=== PATIENT | male | born 1965 | race Caucasian/White ===

== ENCOUNTER 2017-11-24 08:19 | Outpatient (CLI) | payer OTHER ==
[~2017-11-24 08:19] MED LIST: ALBUTEROL SULFAT4 MG; ATENOLOL100 MG; BENADRYL50 MG; METFORMIN HCL500 M1; ORPH100T PO; RESTORIL30 MG; SYNTHROID75 MCG; TENORMIN100 MG; ULTRAM50 MG PO; VISTARIL50 MG; XANAX2 MG; ZOCOR20 MG; [UNRECOGNIZED DRUG - OTHER]
== END 2017-11-24 09:14 | disposition home or self-care (01) ==
LOC: LAB 08:19
DX: N40.1 Benign prostatic hyperplasia with lower urinary tract symptoms (principal); Z12.11 Encounter for screening for malignant neoplasm of colon; R78.9 Finding of unspecified substance, not normally found in blood; E78.2 Mixed hyperlipidemia; R74.0 Nonspecific elevation of levels of transaminase and lactic acid dehydrogenase [LDH]; E87.8 Other disorders of electrolyte and fluid balance, not elsewhere classified

== ENCOUNTER 2018-04-21 03:19 | Inpatient (IN) | payer OTHER ==
[~2018-04-21] VITALS: Ht 165.1 cm; Wt 270.0 kg
--- NOTE | 2018-04-21 03:33 | NUR ---
SE RECIBE PTE ALERTA Y ORIENTADO POR FRANCESCA. PTE REFIERE DOLOR EN EL PECHO Y PALPITASIONES DESDE HACE MEDIA HORA. SE LE REALIZA EKG A PTE Y SE LE PRESENTA A , QUIEN REFIERE COLOCAR A PTE EN AREA DE CHEST PAIN CONECTADO A MONITOR CARDIACO.
--- NOTE | 2018-04-21 04:14 | NUR ---
PTE LLEGA CON DOLOR DE PECHO Y SOB, PACIENTE CON PULSO FLUCTUANDO ENTRE 155/MIN APROXIMADAMENTE, SE NOTIFICA A DR. SWAIN Y NASEEM COMIENZA A EMITIR ORDENES VERBALES LAS CUALES FUERON EJECUTADAS, AL MOMENTO PACIENTE ESTABLE, SIGNOS VITALES ESTABLES, ALERTA Y ORIENTADO X3 [place] MEDICO ORDENADO. PTE CON MONITOR Y SV CONTINUOS, VENOPUNCION PATENTE, SAMIR DE EDEMA Y ERITEMA. SE CONTINUA MONITOREANDO POR CAMBIOS SIGNIFICATIVOS, PACIENTE AL MOMENTO ACOMPANADO DE FAMILIAR.
--- NOTE | 2018-04-21 06:23 | NUR ---
PACIENTE AL MOMENTO ESTABLE, SIGNOS VITALES ESTABLES, ALERTA Y ORIENTADO X3 ACOMPANADO DE FAMILIAR, AL MOMENTO PACIENTE PENDIENTE A RESULTADOS. SE CONTINUA MONITOREANDO POR CAMBIOS. PTE [place] MEDICO ORDENADO.
[2018-04-22] MEDS ORDERED: SYNTHROID88 MCG PO (15:28)
== END 2018-04-23 10:10 | disposition home or self-care (01) | DRG 310 ==
LOC: ER 03:19 → MEDI 08:48 → SEC-K 08:48 → MEDI 10:10
PROVIDERS: ADMIT Internal Medicine
PROC: B246ZZZ Ultrasonography of Right and Left Heart (ICD-10-PCS; principal; 2018-04-21)
PROC: 4A12X4Z Monitoring of Cardiac Electrical Activity, External Approach (ICD-10-PCS; 2018-04-23)
DX: I47.1 Supraventricular tachycardia (principal); I11.9 Hypertensive heart disease without heart failure; E11.9 Type 2 diabetes mellitus without complications; E66.09 Other obesity due to excess calories

== ENCOUNTER → 2018-07-02 10:10 | Outpatient (CLI) | payer OTHER ==
[~2018-07-02 10:10] MED LIST changes: +SYNTHROID88 MCG PO
== END | disposition home or self-care (01) ==
LOC: LAB 10:10
DX: D64.89 Other specified anemias (principal); R10.84 Generalized abdominal pain; E03.8 Other specified hypothyroidism; E78.49 Other hyperlipidemia; R07.89 Other chest pain; E55.9 Vitamin D deficiency, unspecified; R80.8 Other proteinuria; E11.9 Type 2 diabetes mellitus without complications

== ENCOUNTER 2018-07-08 10:36 | Outpatient (CLI) | payer OTHER | END 2018-07-08 10:45 | disposition home or self-care (01) | LOC: LAB 10:36 | DX: N39.0 Urinary tract infection, site not specified (principal); R74.0 Nonspecific elevation of levels of transaminase and lactic acid dehydrogenase [LDH]; D65 Disseminated intravascular coagulation [defibrination syndrome]; E87.8 Other disorders of electrolyte and fluid balance, not elsewhere classified; E11.69 Type 2 diabetes mellitus with other specified complication ==

== ENCOUNTER 2018-10-25 12:05 | Outpatient (CLI) | payer OTHER | END 2018-10-25 12:14 | disposition home or self-care (01) | LOC: LAB 12:05 | DX: R19.8 Other specified symptoms and signs involving the digestive system and abdomen (principal) ==

== ENCOUNTER → 2019-04-02 | Outpatient (CLI) | payer OTHER | END | disposition home or self-care (01) | LOC: RAD 09:40 | DX: R07.89 Other chest pain (principal) ==

== ENCOUNTER 2019-09-07 07:16 | Outpatient (CLI) | payer OTHER | END 2019-09-07 15:00 | disposition home or self-care (01) | LOC: LAB 07:16 | PROVIDERS: ATTEND Internal Medicine | DX: R07.89 Other chest pain (principal); N40.1 Benign prostatic hyperplasia with lower urinary tract symptoms; E11.69 Type 2 diabetes mellitus with other specified complication; E78.00 Pure hypercholesterolemia, unspecified; E78.2 Mixed hyperlipidemia; R74.8 Abnormal levels of other serum enzymes; E87.8 Other disorders of electrolyte and fluid balance, not elsewhere classified; D50.8 Other iron deficiency anemias; N39.0 Urinary tract infection, site not specified; E55.9 Vitamin D deficiency, unspecified; Z83.49 Family history of other endocrine, nutritional and metabolic diseases; R97.8 Other abnormal tumor markers; Z12.11 Encounter for screening for malignant neoplasm of colon ==

== ENCOUNTER 2019-09-22 07:24 | Outpatient (CLI) | payer OTHER ==
[2019-09-22] MEDS ORDERED: FLONASE16 GM NASAL (12:19)
[2019-09-22] MEDS ORDERED: NEILMED SINUS1 EAC1 NASAL (12:20)
== END 2019-09-22 07:29 | disposition home or self-care (01) ==
LOC: LAB 07:24
PROVIDERS: ATTEND Internal Medicine
DX: N39.0 Urinary tract infection, site not specified (principal); B99.8 Other infectious disease

== ENCOUNTER 2019-09-22 11:42 | Outpatient (CLI) | payer OTHER ==
[~2019-09-22] VITALS: Ht 175.3 cm; Wt 131.1 kg
[2019-09-22] MEDS ORDERED: FLONASE16 GM NASAL (12:19)
[2019-09-22] MEDS ORDERED: NEILMED SINUS1 EAC1 NASAL (12:20)
== END 2019-09-22 16:22 | disposition home or self-care (01) ==
LOC: OFIC 805 11:42
PROVIDERS: ATTEND Otolaryngology
DX: J04.0 Acute laryngitis (principal); R07.0 Pain in throat; K21.9 Gastro-esophageal reflux disease without esophagitis; R09.81 Nasal congestion; J30.89 Other allergic rhinitis; K21.0 Gastro-esophageal reflux disease with esophagitis; K14.6 Glossodynia

== ENCOUNTER 2019-09-27 13:52 | Emergency (ER) | payer OTHER ==
[~2019-09-27] VITALS: Ht 175.3 cm; Wt 130.6 kg
[~2019-09-27 13:52] MED LIST changes: +FLONASE16 GM NASAL; +NEILMED SINUS1 EAC1 NASAL
== END 2019-09-27 17:00 | disposition home or self-care (01) ==
LOC: ER 13:52
DX: N20.0 Calculus of kidney (principal); R10.31 Right lower quadrant pain

== ENCOUNTER 2019-09-29 06:08 | Emergency (ER) | payer OTHER ==
[~2019-09-29] VITALS: Ht 167.6 cm; Wt 113.4 kg
[2019-09-29] MEDS ORDERED: AVAPRO75 MG PO (06:22)
[2019-09-29] MEDS ORDERED: METFORMIN HCL1000 M2 PO (06:23)
[2019-09-29] MEDS ORDERED: LIPITOR40 M1 PO (06:23)
[2019-09-29] MEDS ORDERED: KEFLEX500 MG PO (08:40)
[2019-09-29] MEDS ORDERED: PYRIDIUM DS200 MG PO (08:40)
== END 2019-09-29 09:26 | disposition home or self-care (01) ==
LOC: ER 06:08
DX: R30.0 Dysuria (principal)

== ENCOUNTER 2019-11-24 11:28 | Outpatient (CLI) | payer OTHER ==
[~2019-11-24 11:28] MED LIST changes: +AVAPRO75 MG PO; +KEFLEX500 MG PO; +LIPITOR40 M1 PO; +METFORMIN HCL1000 M2 PO; +PYRIDIUM DS200 MG PO
== END 2019-11-24 13:00 | disposition home or self-care (01) ==
LOC: OFIC 805 11:28
PROVIDERS: ATTEND Otolaryngology
DX: J04.0 Acute laryngitis (principal); R07.0 Pain in throat

== ENCOUNTER → 2020-03-01 | Outpatient (CLI) | payer OTHER | END | disposition home or self-care (01) | LOC: OFIC 805 09:00 | PROVIDERS: ATTEND Otolaryngology | DX: R07.0 Pain in throat (principal); J04.0 Acute laryngitis; R49.0 Dysphonia; M54.2 Cervicalgia; K21.9 Gastro-esophageal reflux disease without esophagitis; G47.33 Obstructive sleep apnea (adult) (pediatric) ==

== ENCOUNTER 2020-05-16 08:16 | Outpatient (CLI) | payer OTHER | END 2020-05-16 08:18 | disposition home or self-care (01) | LOC: LAB 08:16 | PROVIDERS: ATTEND Internal Medicine | DX: E11.69 Type 2 diabetes mellitus with other specified complication (principal); E78.2 Mixed hyperlipidemia; R74.01 Elevation of levels of liver transaminase levels; E87.8 Other disorders of electrolyte and fluid balance, not elsewhere classified; D50.8 Other iron deficiency anemias; N39.0 Urinary tract infection, site not specified; E03.8 Other specified hypothyroidism; E55.9 Vitamin D deficiency, unspecified ==

== ENCOUNTER 2020-10-09 07:40 | Outpatient (CLI) | payer OTHER | END 2020-10-09 07:41 | disposition home or self-care (01) | LOC: LAB 07:40 | DX: D68.8 Other specified coagulation defects (principal); E11.9 Type 2 diabetes mellitus without complications; I10 Essential (primary) hypertension; H11.022 Central pterygium of left eye; Z01.812 Encounter for preprocedural laboratory examination ==

== ENCOUNTER → 2020-11-15 07:36 | Outpatient (CLI) | payer OTHER | END | disposition home or self-care (01) | LOC: LAB 07:36 | PROVIDERS: ATTEND Internal Medicine Nephrology | DX: I10 Essential (primary) hypertension (principal); E11.21 Type 2 diabetes mellitus with diabetic nephropathy; R80.8 Other proteinuria ==

== ENCOUNTER → 2020-11-26 08:54 | Outpatient (CLI) | payer OTHER | END | disposition home or self-care (01) | LOC: LAB 08:54 | PROVIDERS: ATTEND Internal Medicine | DX: D50.8 Other iron deficiency anemias (principal); E11.69 Type 2 diabetes mellitus with other specified complication; E78.2 Mixed hyperlipidemia; E78.00 Pure hypercholesterolemia, unspecified; E87.8 Other disorders of electrolyte and fluid balance, not elsewhere classified; N39.0 Urinary tract infection, site not specified; E55.9 Vitamin D deficiency, unspecified; Z83.49 Family history of other endocrine, nutritional and metabolic diseases; R97.8 Other abnormal tumor markers; Z12.11 Encounter for screening for malignant neoplasm of colon; E11.65 Type 2 diabetes mellitus with hyperglycemia; I10 Essential (primary) hypertension ==

== ENCOUNTER 2020-12-04 19:45 | Emergency (ER) | payer OTHER ==
[~2020-12-04] VITALS: Ht 175.3 cm; Wt 126.6 kg
[2020-12-04] MEDS ORDERED: BENADRYL ALLERG25 MG PO (21:25)
== END 2020-12-05 00:02 | disposition home or self-care (01) ==
LOC: ER 19:45
DX: L27.1 Localized skin eruption due to drugs and medicaments taken internally (principal); T50.995A Adverse effect of other drugs, medicaments and biological substances, initial encounter

== ENCOUNTER 2022-01-28 09:59 | Outpatient (CLI) | payer OTHER ==
[~2022-01-28 09:59] MED LIST changes: +BENADRYL ALLERG25 MG PO
== END 2022-01-28 10:05 | disposition home or self-care (01) ==
LOC: RAD 09:59
PROVIDERS: ATTEND Internal Medicine Pulmonary Disease
DX: R05.9 Cough, unspecified (principal)

== ENCOUNTER → 2023-03-20 06:41 | Outpatient (CLI) | payer OTHER ==
[2023-03-20 07:35] LABS: HEMATOCRIT 41.6 % (39.0-48.0); HEMOGLOBIN 14.3 g/dL (13-16.00); MEAN CELL VOLUME 94.9 fL (80.0-100.00); MEAN CORPUSCULAR HEMOGLOBIN 32.7 pg (27.00-32.0); MEAN CORPUSCULAR HGB CONC 34.5 g/dl (32.0-36.0); PLATELET COUNT 136 K/uL (150-450); RED BLOOD COUNT 4.38 M/uL (4.00-6.00); RED CELL DISTRIBUTION WIDTH 13.4 % (11.5-14.5)
[2023-03-20 07:49] LABS: PH,URINE 5.5 (5.0-8.0); URINE APPEARANCE Clear; URINE BACTERIA 8.8 uL (0.0-1933); URINE BILIRRUBIN Negative (NEGATIVE); URINE BLOOD Negative; URINE COLOR Yellow; URINE EPITHELIAL CELLS 6.4 uL (0.0-38.8); URINE GLUCOSE Negative (NEGATIVE); URINE LEUKOCYTE Negative; URINE NITRATE Negative; URINE PROTEIN 30 (NEGATIVE); URINE WBC 14.9 uL (0.0-23.2)
[2023-03-20 07:55] LABS: URINE RBC 1.5 uL (0.0-20.8)
[2023-03-20 08:06] LABS: BILIRUBIN TOTAL 0.45 mg/dL (0.3-1.2); CALCIUM 9.2 mg/dL (8.5-10.1); CHOL HDL RATIO 5.3 (0-5.0); CREATININE SERUM 1.22 mg/dL (0.70-1.30); GFR 61.45; GLOBULINA 3.5 G/DL (2.4-3.5); PHOSPHOROUS 3.5 mg/dL (2.5-4.9); POTASSIUM 3.77 mEq/L (3.5-5.1); TOTAL PROTEIN 7.5 gm/dL (6.4-8.2); TSH 1.77 uIU/mL (0.358-3.74)
[2023-03-20 08:09] LABS: URIC ACID 5.4 mg/dL (3.5-8.5)
== END | disposition home or self-care (01) ==
LOC: LAB 06:41
PROVIDERS: ATTEND Specialist
DX: E11.65 Type 2 diabetes mellitus with hyperglycemia (principal); I10 Essential (primary) hypertension; E03.8 Other specified hypothyroidism; E78.5 Hyperlipidemia, unspecified; N18.2 Chronic kidney disease, stage 2 (mild); R80.9 Proteinuria, unspecified; E11.22 Type 2 diabetes mellitus with diabetic chronic kidney disease

== ENCOUNTER 2023-09-16 06:49 | Outpatient (CLI) | payer OTHER ==
[2023-09-16 07:23] LABS: HEMOGLOBIN 14.6 g/dL (13-16.00); MEAN CELL VOLUME 93.7 fL (80.0-100.00); MEAN CORPUSCULAR HEMOGLOBIN 32.5 pg (27.00-32.0); MEAN CORPUSCULAR HGB CONC 34.7 g/dl (32.0-36.0); PLATELET COUNT 139 K/uL (150-450); RED BLOOD COUNT 4.48 M/uL (4.00-6.00); RED CELL DISTRIBUTION WIDTH 14.1 % (11.5-14.5)
[2023-09-16 08:22] LABS: ALBUMIN 4.3 gm/dL (3.4-5.0); BILIRUBIN TOTAL 0.44 mg/dL (0.3-1.2); CALCIUM 9.8 mg/dL (8.5-10.1); CHOL HDL RATIO 4.7 (0-5.0); CREATININE SERUM 1.14 mg/dL (0.70-1.30); GFR 66.45; GLOBULINA 3.8 G/DL (2.4-3.5); POTASSIUM 3.52 mEq/L (3.5-5.1); TOTAL PROTEIN 8.1 gm/dL (6.4-8.2)
== END 2023-09-16 06:53 | disposition home or self-care (01) ==
LOC: LAB 06:49
PROVIDERS: ATTEND Internal Medicine
DX: E11.65 Type 2 diabetes mellitus with hyperglycemia (principal); E78.5 Hyperlipidemia, unspecified; I10 Essential (primary) hypertension

== ENCOUNTER 2023-10-05 07:40 | Outpatient (CLI) | payer OTHER ==
[2023-10-05 08:06] LABS: HEMATOCRIT 40.6 % (39.0-48.0); HEMOGLOBIN 14.1 g/dL (13-16.00); MEAN CELL VOLUME 93.8 fL (80.0-100.00); MEAN CORPUSCULAR HEMOGLOBIN 32.7 pg (27.00-32.0); MEAN CORPUSCULAR HGB CONC 34.9 g/dl (32.0-36.0); PLATELET COUNT 164 K/uL (150-450); RED BLOOD COUNT 4.32 M/uL (4.00-6.00); RED CELL DISTRIBUTION WIDTH 13.1 % (11.5-14.5)
[2023-10-05 08:34] LABS: PH,URINE 5.5 (5.0-8.0); URINE APPEARANCE Clear; URINE BILIRRUBIN Negative (NEGATIVE); URINE BLOOD Negative; URINE COLOR Yellow; URINE KETONE Trace (NEGATIVE); URINE LEUKOCYTE Negative; URINE NITRATE Negative; URINE PROTEIN Trace (NEGATIVE); URINE UROBILINOGEN 0.2 E.U./dl
[2023-10-05 08:36] LABS: URINE BACTERIA 28.9 uL (0.0-1933); URINE EPITHELIAL CELLS 8.9 uL (0.0-38.8); URINE WBC 40.7 uL (0.0-23.2)
[2023-10-05 08:46] LABS: URINE GLUCOSE >=1000 MG/DL (NEGATIVE)
[2023-10-05 09:08] LABS: ALBUMIN 4.2 gm/dL (3.4-5.0); CALCIUM 10.2 mg/dL (8.5-10.1); CREATININE SERUM 0.99 mg/dL (0.70-1.30); GFR 78.2; PHOSPHOROUS 3.8 mg/dL (2.5-4.9); POTASSIUM 3.95 mEq/L (3.5-5.1); URIC ACID 5.2 mg/dL (3.5-8.5)
== END 2023-10-05 07:44 | disposition home or self-care (01) ==
LOC: LAB 07:40
PROVIDERS: ATTEND Internal Medicine Nephrology
DX: R80.9 Proteinuria, unspecified (principal); I10 Essential (primary) hypertension; N18.30 Chronic kidney disease, stage 3 unspecified

== ENCOUNTER 2023-12-22 07:10 | Outpatient (CLI) | payer OTHER ==
[2023-12-22 07:54] LABS: HEMATOCRIT 42.8 % (39.0-48.0); HEMOGLOBIN 14.8 g/dL (13-16.00); MEAN CELL VOLUME 94.9 fL (80.0-100.00); MEAN CORPUSCULAR HEMOGLOBIN 32.8 pg (27.00-32.0); MEAN CORPUSCULAR HGB CONC 34.6 g/dl (32.0-36.0); PLATELET COUNT 142 K/uL (150-450); RED BLOOD COUNT 4.51 M/uL (4.00-6.00)
[2023-12-22 08:04] LABS: PH,URINE 5.5 (5.0-8.0); URINE APPEARANCE Clear; URINE BILIRRUBIN Negative (NEGATIVE); URINE BLOOD Negative; URINE COLOR Yellow; URINE KETONE Trace (NEGATIVE); URINE LEUKOCYTE Negative; URINE NITRATE Negative; URINE PROTEIN Trace (NEGATIVE)
[2023-12-22 08:05] LABS: URINE BACTERIA 11.3 uL (0.0-1933); URINE EPITHELIAL CELLS 5.2 uL (0.0-38.8); URINE WBC 10.4 uL (0.0-23.2)
[2023-12-22 08:09] LABS: URINE GLUCOSE >=1000 MG/DL (NEGATIVE); URINE RBC 0.7 uL (0.0-20.8)
[2023-12-22 08:58] LABS: ob NEGATIVE (NEGATIVE)
[2023-12-22 09:14] LABS: ALBUMIN 4.3 gm/dL (3.4-5.0); BILIRUBIN TOTAL 0.55 mg/dL (0.3-1.2); CHOL HDL RATIO 2.4 (0-5.0); CREATININE SERUM 1.54 mg/dL (0.70-1.30); GFR 46.96; GLOBULINA 3.3 G/DL (2.4-3.5); POTASSIUM 4.4 mEq/L (3.5-5.1); PROSTATIC SPECIFIC ANTIGEN 0.543 NG/ML (0.010-4.00); TOTAL PROTEIN 7.6 gm/dL (6.4-8.2); TSH 2.47 uIU/mL (0.358-3.74)
== END 2023-12-22 07:17 | disposition home or self-care (01) ==
LOC: LAB 07:10
PROVIDERS: ATTEND Internal Medicine
DX: E78.5 Hyperlipidemia, unspecified (principal); E11.65 Type 2 diabetes mellitus with hyperglycemia; I10 Essential (primary) hypertension; E03.8 Other specified hypothyroidism; E11.69 Type 2 diabetes mellitus with other specified complication; E55.9 Vitamin D deficiency, unspecified; R97.8 Other abnormal tumor markers; Z12.11 Encounter for screening for malignant neoplasm of colon; N40.1 Benign prostatic hyperplasia with lower urinary tract symptoms